=== PATIENT | male | born 1960 | race Hispanic/Latino ===

== ENCOUNTER 2020-06-22 14:59 | Inpatient (IN) | payer MEDICAID ==
[2020-06-22] MEDS ORDERED: AZITHROMYCIN 500MG+NS 250ML 250 ML IV ONE ×2 (15:26→20:47)
[2020-06-22] MEDS ORDERED: DEXAMETHASONE SOD PHOSPHATE 10MG/ML 1ML VIAL ONE (15:26)
[2020-06-22 15:29] LABS: BASOPHILS % (AUTO) 0.1 % (0.0-5.0); HEMATOCRIT 47.1 % (42-54); LYMPHOCYTES % (AUTO) 12.2 % (21.0-51.0); MEAN CORPUSCULAR HEMOGLOBIN 28.7 pg (27.0-33.0); MEAN CORPUSCULAR VOLUME 84.4 fL (79-99); MONOCYTES % (AUTO) 6.7 % (3.0-13.0); NEUTROPHILS % (AUTO) 80.2 % (40.0-77.0); PLATELET COUNT (AUTO) 178 K/uL (130-400); RED BLOOD CELL COUNT(AUTO) 5.58 MIL/uL (4.50-6.20); RED CELL DISTRIBUTION WIDTH 13.2 % (11.0-15.5); WHITE BLOOD COUNT (AUTO) 7.6 K/uL (4.8-10.8)
[2020-06-22] MEDS ORDERED: SODIUM CHLORIDE 0.9% 1000ML 1,000 ML IV ONE (15:47)
[2020-06-22] MEDS ORDERED: ACETAMINOPHEN EXTRA STRENGTH 500 MG TABLET ONE (15:47)
[2020-06-22 15:49] LABS: ABG BASE EXCESS -1.2 mmol/L (-2.0-3.0); ABG HCO3 20.2 mmol/L (21.0-28.0); ABG OXYGEN SATURATION 86.2 % (95.0-99.0); ABG PCO2 26 mmHg (35-48)
[2020-06-22 16:00] LABS: B-TYPE NATRIURETIC PEPTIDE < 5 pg/mL (0-100)
[2020-06-22 16:07] LABS: ALBUMIN 2.6 g/dL (3.5-5.0); BILIRUBIN,TOTAL 0.7 mg/dL (0.2-1.0); POTASSIUM 4.4 mmol/L (3.5-5.1); TOTAL PROTEIN, SERUM 7.1 g/dL (6.0-8.3)
[2020-06-22 16:20] LABS: CREATININE 0.7 mg/dL (0.5-1.5)
[2020-06-22] MEDS ORDERED: DOXYCYCLINE 100MG+NS 250ML IV SCH (20:00)
[2020-06-22] MEDS: CEFTRIAXONE SODIUM 1 GM IVP SCH (20:00)
[2020-06-22] MEDS: DEXAMETHASONE SOD PHOSPHATE 4 MG/ML 1ML VIAL IVP SCH (20:00)
[2020-06-22] MEDS ORDERED: ERGOCALCIFEROL (VITAMIN D2) 50,000 UNIT CAPSULE PO ONE (20:00)
[2020-06-22] MEDS: AZITHROMYCIN 500MG+NS 250ML 250 ML IV SCH (20:00)
[2020-06-22] MEDS ORDERED: IOHEXOL 350 MG/ML 100ML INFUS..BTL IV ONE (20:23)
[2020-06-22] MEDS ORDERED: ERGOCALCIFEROL (VITAMIN D2) 50,000 UNIT CAPSULE ONE (20:46)
[2020-06-22] MEDS ORDERED: ENOXAPARIN SODIUM 40 MG/0.4 ML SYRINGE SQ ONE (20:47)
[2020-06-22] MEDS ORDERED: DEXAMETHASONE SOD PHOSPHATE 4 MG/ML 1ML VIAL ONE (20:47)
[2020-06-22] MEDS ORDERED: CEFTRIAXONE SODIUM 1 GM ONE (20:48)
[2020-06-22] MEDS ORDERED: DOXYCYCLINE 100MG+NS 250ML 250 ML IV ONE (20:48)
[2020-06-22] MEDS: INSULIN HUMULIN R 100 UNIT/ML 3ML SQ SCH (21:00)
[2020-06-22] MEDS: DOXYCYCLINE 100MG+NS 250ML 250 ML IV SCH (21:00)
[2020-06-22] MEDS: ENOXAPARIN SODIUM 40 MG/0.4 ML SYRINGE SQ SCH (21:00)
[2020-06-22] MEDS ORDERED: INSULIN HUMULIN R 100 UNIT/ML 3ML ONE (22:32)
[2020-06-22] MEDS ORDERED: PHARMACY COMMUNICATION**REMDESIVIR ORDER MISC SCH (23:15)
[2020-06-22 23:42] VITALS: BP 126/69
[2020-06-23 04:00] VITALS: BP 125/68
[2020-06-23] MEDS ORDERED: METF-446 PO (04:13)
[2020-06-23 06:23] LABS: BASOPHILS % (AUTO) 0.5 % (0.0-5.0); HEMATOCRIT 40.6 % (42-54); MEAN CORPUSCULAR HEMOGLOBIN 28.6 pg (27.0-33.0); MEAN CORPUSCULAR VOLUME 86.6 fL (79-99); MONOCYTES % (AUTO) 5.5 % (3.0-13.0); NEUTROPHILS % (AUTO) 78.6 % (40.0-77.0); PLATELET COUNT (AUTO) 195 K/uL (130-400); RED BLOOD CELL COUNT(AUTO) 4.69 MIL/uL (4.50-6.20); RED CELL DISTRIBUTION WIDTH 13.1 % (11.0-15.5); WHITE BLOOD COUNT (AUTO) 4.2 K/uL (4.8-10.8)
[2020-06-23 06:37] LABS: ALBUMIN 2.3 g/dL (3.5-5.0); BILIRUBIN,TOTAL 0.4 mg/dL (0.2-1.0); CREATININE 0.7 mg/dL (0.5-1.5); CRP QUANTITATIVE 144.4 mg/L (0.00-9.0); TOTAL PROTEIN, SERUM 6.6 g/dL (6.0-8.3)
[2020-06-23] MEDS: INSULIN HUMULIN R 100 UNIT/ML 3ML SQ SCH ×4 (06:54→22:33)
[2020-06-23] MEDS ORDERED: COMPOUND IV REFRIGERATED 1 EACH IVSOLN MISC PRN (07:45)
[2020-06-23] MEDS ORDERED: REMDESIVIR (EUA) 520 200 MG in SODIUM CHLORIDE 0.9% 250 ML IV ONE (07:45)
[2020-06-23 08:00] VITALS: BP 140/73
[2020-06-23] MEDS: CEFTRIAXONE SODIUM 1 GM IVP SCH ×2 (08:01→20:15)
[2020-06-23] MEDS: ASCORBIC ACID 500 MG TAB PO SCH (08:04)
[2020-06-23] MEDS: DOXYCYCLINE 100MG+NS 250ML 250 ML IV SCH ×2 (08:04→22:34)
[2020-06-23] MEDS: ZINC SULFATE 220 CAPSULE PO SCH (08:04)
[2020-06-23] MEDS: ENOXAPARIN SODIUM 40 MG/0.4 ML SYRINGE SQ SCH ×2 (08:04→22:32)
[2020-06-23 11:00] VITALS: BP 130/59
[2020-06-23 16:00] VITALS: BP 125/65
[2020-06-23 19:00] VITALS: BP 121/66
[2020-06-23] MEDS: AZITHROMYCIN 500MG+NS 250ML 250 ML IV SCH (20:15)
[2020-06-23] MEDS: HYDROXYZINE HCL 25 MG TABLET PO PRN (20:15)
[2020-06-23] MEDS: DEXAMETHASONE SOD PHOSPHATE 4 MG/ML 1ML VIAL IVP SCH (20:15)
[2020-06-24] VITALS: BP 127/63
[2020-06-24 04:00] VITALS: BP 106/62
[2020-06-24 05:58] LABS: BASOPHILS % (AUTO) 0.1 % (0.0-5.0); HEMATOCRIT 43.2 % (42-54); MEAN CORPUSCULAR HEMOGLOBIN 28.3 pg (27.0-33.0); MEAN CORPUSCULAR HGB CONC 32.9 g/dL (32.0-36.0); MEAN CORPUSCULAR VOLUME 86.1 fL (79-99); MONOCYTES % (AUTO) 5.3 % (3.0-13.0); NEUTROPHILS % (AUTO) 86.7 % (40.0-77.0); PLATELET COUNT (AUTO) 236 K/uL (130-400); RED BLOOD CELL COUNT(AUTO) 5.02 MIL/uL (4.50-6.20); RED CELL DISTRIBUTION WIDTH 13.2 % (11.0-15.5)
[2020-06-24] MEDS: REMDESIVIR LABS MISC SCH (06:00)
[2020-06-24 06:21] LABS: ALBUMIN 2.3 g/dL (3.5-5.0); BILIRUBIN,TOTAL 0.4 mg/dL (0.2-1.0); CREATININE 0.6 mg/dL (0.5-1.5); CRP QUANTITATIVE 50.7 mg/L (0.00-9.0); POTASSIUM 5.4 mmol/L (3.5-5.1); TOTAL PROTEIN, SERUM 6.4 g/dL (6.0-8.3)
[2020-06-24] MEDS: INSULIN HUMULIN R 100 UNIT/ML 3ML SQ SCH ×4 (06:57→20:33)
[2020-06-24] MEDS: ZINC SULFATE 220 CAPSULE PO SCH (08:13)
[2020-06-24] MEDS: ENOXAPARIN SODIUM 40 MG/0.4 ML SYRINGE SQ SCH ×2 (08:13→20:32)
[2020-06-24] MEDS: CEFTRIAXONE SODIUM 1 GM IVP SCH ×2 (08:13→20:31)
[2020-06-24] MEDS: ASCORBIC ACID 500 MG TAB PO SCH (08:13)
[2020-06-24] MEDS: DOXYCYCLINE 100MG+NS 250ML 250 ML IV SCH (08:14)
[2020-06-24] MEDS ORDERED: PANTOPRAZOLE SODIUM 40 MG TABLET.DR PO SCH (09:00)
[2020-06-24] MEDS: SODIUM POLYSTYRENE SULFONATE 15 GM/60 ML ML PO SCH (09:37)
[2020-06-24] MEDS: FUROSEMIDE 10 MG/ML 2ML VIAL IV SCH (09:37)
[2020-06-24] MEDS ORDERED: LACTATED RINGERS 1000ML 1,000 ML IV ONE (10:06)
[2020-06-24 10:11] VITALS: BP 118/63
[2020-06-24 12:28] VITALS: BP 125/90
[2020-06-24] MEDS: REMDESIVIR (EUA) 520 100 MG in SODIUM CHLORIDE 0.9% 250 ML IV SCH (13:25)
[2020-06-24 17:18] VITALS: BP 125/60
[2020-06-24 19:00] VITALS: BP 121/60
[2020-06-24] MEDS: AZITHROMYCIN 500MG+NS 250ML 250 ML IV SCH (20:32)
[2020-06-24] MEDS: DEXAMETHASONE SOD PHOSPHATE 4 MG/ML 1ML VIAL IVP SCH (20:32)
[2020-06-24] MEDS: HYDROXYZINE HCL 25 MG TABLET PO PRN (20:43)
[2020-06-25] VITALS (12 sets, daily range): BP systolic 116–148; BP diastolic 55–87
[2020-06-25] MEDS: REMDESIVIR LABS MISC SCH (06:00)
[2020-06-25] MEDS: INSULIN HUMULIN R 100 UNIT/ML 3ML SQ SCH ×4 (06:17→21:48)
[2020-06-25 06:20] LABS: BASOPHILS % (AUTO) 0.1 % (0.0-5.0); HEMATOCRIT 41.9 % (42-54); LYMPHOCYTES % (AUTO) 6.8 % (21.0-51.0); MEAN CORPUSCULAR HEMOGLOBIN 29.3 pg (27.0-33.0); MEAN CORPUSCULAR HGB CONC 33.9 g/dL (32.0-36.0); MEAN CORPUSCULAR VOLUME 86.4 fL (79-99); MONOCYTES % (AUTO) 2.6 % (3.0-13.0); NEUTROPHILS % (AUTO) 89.5 % (40.0-77.0); PLATELET COUNT (AUTO) 240 K/uL (130-400); RED BLOOD CELL COUNT(AUTO) 4.85 MIL/uL (4.50-6.20); WHITE BLOOD COUNT (AUTO) 14.4 K/uL (4.8-10.8)
[2020-06-25 06:51] LABS: ALBUMIN 2.3 g/dL (3.5-5.0); BILIRUBIN,TOTAL 0.5 mg/dL (0.2-1.0); CREATININE 0.9 mg/dL (0.5-1.5); CRP QUANTITATIVE 128.2 mg/L (0.00-9.0); POTASSIUM 3.8 mmol/L (3.5-5.1); TOTAL PROTEIN, SERUM 6.4 g/dL (6.0-8.3)
[2020-06-25] MEDS: FUROSEMIDE 10 MG/ML 2ML VIAL IV SCH (08:07)
[2020-06-25] MEDS: SODIUM POLYSTYRENE SULFONATE 15 GM/60 ML ML PO SCH (08:07)
[2020-06-25] MEDS: ASCORBIC ACID 500 MG TAB PO SCH (08:08)
[2020-06-25] MEDS: ZINC SULFATE 220 CAPSULE PO SCH (08:08)
[2020-06-25] MEDS: CEFTRIAXONE SODIUM 1 GM IVP SCH ×2 (08:08→20:20)
[2020-06-25] MEDS: DOXYCYCLINE 100MG+NS 250ML 250 ML IV SCH ×3 (08:08→21:45)
[2020-06-25] MEDS: ENOXAPARIN SODIUM 40 MG/0.4 ML SYRINGE SQ SCH ×2 (08:09→20:26)
[2020-06-25] MEDS: DEXAMETHASONE SOD PHOSPHATE 4 MG/ML 1ML VIAL IVP SCH ×2 (14:28→21:45)
[2020-06-25] MEDS: REMDESIVIR (EUA) 520 100 MG in SODIUM CHLORIDE 0.9% 250 ML IV SCH (14:31)
[2020-06-25] MEDS: GUAIFENESIN-CODEINE 5 ML SYRUP PO PRN (14:44)
[2020-06-25] MEDS: AZITHROMYCIN 500MG+NS 250ML 250 ML IV SCH (20:20)
[2020-06-26] VITALS (22 sets, daily range): BP systolic 96–140; BP diastolic 34–78
[2020-06-26] MEDS: GUAIFENESIN-CODEINE 5 ML SYRUP PO PRN (00:38)
[2020-06-26] MEDS: INSULIN HUMULIN R 100 UNIT/ML 3ML SQ SCH ×4 (06:41→22:54)
[2020-06-26] MEDS: REMDESIVIR LABS MISC SCH (07:50)
[2020-06-26 08:04] LABS: ALBUMIN 2.1 g/dL (3.5-5.0); BILIRUBIN,DIRECT 0.1 mg/dL (0.0-0.3); BILIRUBIN,TOTAL 0.4 mg/dL (0.2-1.0); CREATININE 0.8 mg/dL (0.5-1.5); POTASSIUM 4.7 mmol/L (3.5-5.1); TOTAL PROTEIN, SERUM 5.9 g/dL (6.0-8.3)
[2020-06-26] MEDS: ZINC SULFATE 220 CAPSULE PO SCH (08:59)
[2020-06-26] MEDS: ASCORBIC ACID 500 MG TAB PO SCH (08:59)
[2020-06-26] MEDS: CEFTRIAXONE SODIUM 1 GM IVP SCH ×2 (08:59→20:00)
[2020-06-26] MEDS: DEXAMETHASONE SOD PHOSPHATE 4 MG/ML 1ML VIAL IVP SCH ×3 (09:00→22:40)
[2020-06-26] MEDS: ENOXAPARIN SODIUM 40 MG/0.4 ML SYRINGE SQ SCH ×2 (09:01→22:43)
[2020-06-26] MEDS: DOXYCYCLINE 100MG+NS 250ML 250 ML IV SCH ×2 (09:01→22:42)
[2020-06-26 10:21] LABS: BASOPHILS % (AUTO) 0.4 % (0.0-5.0); EOSINOPHILS % (AUTO) 0.3 % (0.0-8.0); HEMATOCRIT 41.8 % (42-54); MEAN CORPUSCULAR HEMOGLOBIN 28.7 pg (27.0-33.0); MEAN CORPUSCULAR HGB CONC 32.8 g/dL (32.0-36.0); MEAN CORPUSCULAR VOLUME 87.4 fL (79-99); MONOCYTES % (AUTO) 3.2 % (3.0-13.0); NEUTROPHILS % (AUTO) 85.2 % (40.0-77.0); PLATELET COUNT (AUTO) 248 K/uL (130-400); RED BLOOD CELL COUNT(AUTO) 4.78 MIL/uL (4.50-6.20); RED CELL DISTRIBUTION WIDTH 13.2 % (11.0-15.5); WHITE BLOOD COUNT (AUTO) 7.6 K/uL (4.8-10.8)
[2020-06-26] MEDS: REMDESIVIR (EUA) 520 100 MG in SODIUM CHLORIDE 0.9% 250 ML IV SCH (13:46)
[2020-06-26] MEDS: AZITHROMYCIN 500MG+NS 250ML 250 ML IV SCH (22:41)
[2020-06-27] VITALS (21 sets, daily range): BP systolic 115–155; BP diastolic 44–95
[2020-06-27 05:00] LABS: ABG BASE EXCESS 1.6 mmol/L (-2.0-3.0); ABG HCO3 25.1 mmol/L (21.0-28.0); ABG OXYGEN SATURATION 89.6 % (95.0-99.0); ABG PCO2 36 mmHg (35-48)
[2020-06-27] MEDS: INSULIN HUMULIN R 100 UNIT/ML 3ML SQ SCH ×4 (05:25→22:09)
[2020-06-27] MEDS: REMDESIVIR LABS MISC SCH (06:00)
[2020-06-27 06:11] LABS: BASOPHILS % (AUTO) 0.2 % (0.0-5.0); HEMATOCRIT 41.9 % (42-54); LYMPHOCYTES % (AUTO) 7.9 % (21.0-51.0); MEAN CORPUSCULAR HEMOGLOBIN 28.6 pg (27.0-33.0); MEAN CORPUSCULAR HGB CONC 33.4 g/dL (32.0-36.0); MEAN CORPUSCULAR VOLUME 85.7 fL (79-99); MONOCYTES % (AUTO) 4.8 % (3.0-13.0); NEUTROPHILS % (AUTO) 86.3 % (40.0-77.0); PLATELET COUNT (AUTO) 273 K/uL (130-400); RED BLOOD CELL COUNT(AUTO) 4.89 MIL/uL (4.50-6.20); RED CELL DISTRIBUTION WIDTH 12.8 % (11.0-15.5); WHITE BLOOD COUNT (AUTO) 8.7 K/uL (4.8-10.8)
[2020-06-27 06:34] LABS: ALBUMIN 2.1 g/dL (3.5-5.0); BILIRUBIN,TOTAL 0.5 mg/dL (0.2-1.0); CREATININE 0.6 mg/dL (0.5-1.5); CRP QUANTITATIVE 32.9 mg/L (0.00-9.0); POTASSIUM 3.8 mmol/L (3.5-5.1); TOTAL PROTEIN, SERUM 6.2 g/dL (6.0-8.3)
[2020-06-27] MEDS: DEXAMETHASONE SOD PHOSPHATE 4 MG/ML 1ML VIAL IVP SCH (08:47)
[2020-06-27] MEDS: ENOXAPARIN SODIUM 40 MG/0.4 ML SYRINGE SQ SCH ×2 (08:47→22:06)
[2020-06-27] MEDS: CEFTRIAXONE SODIUM 1 GM IVP SCH ×2 (08:47→22:07)
[2020-06-27] MEDS: ZINC SULFATE 220 CAPSULE PO SCH (08:47)
[2020-06-27] MEDS: ASCORBIC ACID 500 MG TAB PO SCH (08:47)
[2020-06-27] MEDS: DOXYCYCLINE 100MG+NS 250ML 250 ML IV SCH (08:48)
[2020-06-27] MEDS: PHARMACY COMMUNICATION MISC SCH ×5 (10:15→18:15)
[2020-06-27] MEDS: REMDESIVIR (EUA) 520 100 MG in SODIUM CHLORIDE 0.9% 250 ML IV SCH (17:42)
[2020-06-27] MEDS ORDERED: DEXAMETHASONE SOD PHOSPHATE 4 MG/ML 1ML VIAL IVP SCH (21:00)
[2020-06-27] MEDS: AZITHROMYCIN 500MG+NS 250ML 250 ML IV SCH (22:06)
[2020-06-28] VITALS (11 sets, daily range): BP systolic 92–159; BP diastolic 32–102
[2020-06-28] MEDS: GUAIFENESIN-CODEINE 5 ML SYRUP PO PRN ×2 (02:55→13:04)
[2020-06-28 05:24] LABS: BASOPHILS % (AUTO) 0.1 % (0.0-5.0); HEMATOCRIT 42.8 % (42-54); LYMPHOCYTES % (AUTO) 4.4 % (21.0-51.0); MEAN CORPUSCULAR HEMOGLOBIN 28.7 pg (27.0-33.0); MEAN CORPUSCULAR HGB CONC 33.9 g/dL (32.0-36.0); MEAN CORPUSCULAR VOLUME 84.8 fL (79-99); MONOCYTES % (AUTO) 7.2 % (3.0-13.0); NEUTROPHILS % (AUTO) 87.3 % (40.0-77.0); PLATELET COUNT (AUTO) 361 K/uL (130-400); RED BLOOD CELL COUNT(AUTO) 5.05 MIL/uL (4.50-6.20); RED CELL DISTRIBUTION WIDTH 12.7 % (11.0-15.5); WHITE BLOOD COUNT (AUTO) 10.5 K/uL (4.8-10.8)
[2020-06-28 05:33] LABS: CREATININE 0.7 mg/dL (0.5-1.5); CRP QUANTITATIVE 16.9 mg/L (0.00-9.0); POTASSIUM 4.6 mmol/L (3.5-5.1)
[2020-06-28] MEDS: INSULIN HUMULIN R 100 UNIT/ML 3ML SQ SCH ×4 (06:05→22:07)
[2020-06-28] MEDS: ASCORBIC ACID 500 MG TAB PO SCH (09:41)
[2020-06-28] MEDS: ZINC SULFATE 220 CAPSULE PO SCH (09:41)
[2020-06-28] MEDS: ENOXAPARIN SODIUM 40 MG/0.4 ML SYRINGE SQ SCH ×2 (09:41→22:06)
[2020-06-28] MEDS: DEXAMETHASONE SOD PHOSPHATE 4 MG/ML 1ML VIAL IVP SCH (13:18)
[2020-06-28] MEDS: AZITHROMYCIN 500MG+NS 250ML 250 ML IV SCH (22:06)
[2020-06-29 04:00] VITALS: BP 111/57
[2020-06-29] MEDS: GUAIFENESIN-CODEINE 5 ML SYRUP PO PRN ×2 (05:33→05:38)
[2020-06-29 06:10] LABS: BASOPHILS % (AUTO) 0.1 % (0.0-5.0); EOSINOPHILS % (AUTO) 0.4 % (0.0-8.0); HEMATOCRIT 44.8 % (42-54); LYMPHOCYTES % (AUTO) 13.7 % (21.0-51.0); MEAN CORPUSCULAR HGB CONC 33.9 g/dL (32.0-36.0); MEAN CORPUSCULAR VOLUME 85.3 fL (79-99); MONOCYTES % (AUTO) 8.5 % (3.0-13.0); NEUTROPHILS % (AUTO) 76.5 % (40.0-77.0); PLATELET COUNT (AUTO) 317 K/uL (130-400); RED BLOOD CELL COUNT(AUTO) 5.25 MIL/uL (4.50-6.20); RED CELL DISTRIBUTION WIDTH 12.8 % (11.0-15.5); WHITE BLOOD COUNT (AUTO) 10.5 K/uL (4.8-10.8)
[2020-06-29 06:54] LABS: CRP QUANTITATIVE 19.4 mg/L (0.00-9.0); POTASSIUM 4.1 mmol/L (3.5-5.1)
[2020-06-29 06:55] LABS: CREATININE 0.5 mg/dL (0.5-1.5)
[2020-06-29] MEDS: INSULIN HUMULIN R 100 UNIT/ML 3ML SQ SCH ×4 (07:30→21:21)
[2020-06-29] MEDS: ENOXAPARIN SODIUM 40 MG/0.4 ML SYRINGE SQ SCH ×2 (07:43→21:24)
[2020-06-29] MEDS: ZINC SULFATE 220 CAPSULE PO SCH (07:44)
[2020-06-29] MEDS: ASCORBIC ACID 500 MG TAB PO SCH (07:44)
[2020-06-29] MEDS: DEXAMETHASONE SOD PHOSPHATE 4 MG/ML 1ML VIAL IVP SCH (07:44)
[2020-06-29] MEDS: HYDROXYZINE HCL 25 MG TABLET PO PRN (07:58)
[2020-06-29 08:08] VITALS: BP 132/62
[2020-06-29 09:03] VITALS: BP 107/59
[2020-06-29 11:47] VITALS: BP 85/53
[2020-06-29 15:52] VITALS: BP 93/50
[2020-06-29] MEDS ORDERED: CLONAZEPAM 0.5 MG TABLET PO SCH (21:00)
[2020-06-29] MEDS: AZITHROMYCIN 500MG+NS 250ML 250 ML IV SCH (21:17)
[2020-06-30] MEDS: INSULIN HUMULIN R 100 UNIT/ML 3ML SQ SCH ×4 (06:28→20:48)
[2020-06-30 06:38] LABS: BASOPHILS % (AUTO) 0.1 % (0.0-5.0); EOSINOPHILS % (AUTO) 0.4 % (0.0-8.0); HEMATOCRIT 41.5 % (42-54); LYMPHOCYTES % (AUTO) 11.5 % (21.0-51.0); MEAN CORPUSCULAR HEMOGLOBIN 28.3 pg (27.0-33.0); MEAN CORPUSCULAR VOLUME 85.7 fL (79-99); MONOCYTES % (AUTO) 8.3 % (3.0-13.0); NEUTROPHILS % (AUTO) 78.6 % (40.0-77.0); PLATELET COUNT (AUTO) 322 K/uL (130-400); RED BLOOD CELL COUNT(AUTO) 4.84 MIL/uL (4.50-6.20); RED CELL DISTRIBUTION WIDTH 12.8 % (11.0-15.5)
[2020-06-30 07:15] LABS: ALBUMIN 2.3 g/dL (3.5-5.0); BILIRUBIN,TOTAL 0.5 mg/dL (0.2-1.0); CREATININE 0.7 mg/dL (0.5-1.5); CRP QUANTITATIVE 55.8 mg/L (0.00-9.0); POTASSIUM 4.1 mmol/L (3.5-5.1)
[2020-06-30 07:30] VITALS: BP 110/62
[2020-06-30 08:00] VITALS: BP 107/63
[2020-06-30] MEDS: PHARMACY COMMUNICATION MISC SCH (08:15)
[2020-06-30] MEDS: ZINC SULFATE 220 CAPSULE PO SCH (08:22)
[2020-06-30] MEDS: ASCORBIC ACID 500 MG TAB PO SCH (08:22)
[2020-06-30] MEDS: ENOXAPARIN SODIUM 40 MG/0.4 ML SYRINGE SQ SCH ×2 (08:22→20:26)
[2020-06-30] MEDS: GUAIFENESIN-CODEINE 5 ML SYRUP PO PRN ×2 (11:34→18:52)
[2020-06-30 11:49] VITALS: BP 98/63
[2020-06-30 16:00] VITALS: BP 126/80
[2020-06-30] MEDS: AZITHROMYCIN 500MG+NS 250ML 250 ML IV SCH (19:43)
[2020-06-30 20:00] VITALS: BP 104/63
[2020-06-30] MEDS: TRAZODONE HCL 50 MG TAB PO PRN (23:27)
[2020-07-01] MEDS: GUAIFENESIN-CODEINE 5 ML SYRUP PO PRN ×3 (02:04→20:27)
[2020-07-01] MEDS: INSULIN HUMULIN R 100 UNIT/ML 3ML SQ SCH ×4 (06:03→20:34)
[2020-07-01 06:06] LABS: BASOPHILS % (AUTO) 0.2 % (0.0-5.0); EOSINOPHILS % (AUTO) 2.7 % (0.0-8.0); LYMPHOCYTES % (AUTO) 16.6 % (21.0-51.0); MEAN CORPUSCULAR HEMOGLOBIN 29.1 pg (27.0-33.0); MEAN CORPUSCULAR HGB CONC 33.6 g/dL (32.0-36.0); MEAN CORPUSCULAR VOLUME 86.8 fL (79-99); MONOCYTES % (AUTO) 7.3 % (3.0-13.0); NEUTROPHILS % (AUTO) 72.1 % (40.0-77.0); PLATELET COUNT (AUTO) 285 K/uL (130-400); RED BLOOD CELL COUNT(AUTO) 4.84 MIL/uL (4.50-6.20); WHITE BLOOD COUNT (AUTO) 10.8 K/uL (4.8-10.8)
[2020-07-01 06:27] LABS: ALBUMIN 2.1 g/dL (3.5-5.0); BILIRUBIN,TOTAL 0.6 mg/dL (0.2-1.0); CREATININE 0.6 mg/dL (0.5-1.5); CRP QUANTITATIVE 32.5 mg/L (0.00-9.0); POTASSIUM 5.4 mmol/L (3.5-5.1); TOTAL PROTEIN, SERUM 6.1 g/dL (6.0-8.3)
[2020-07-01 08:00] VITALS: BP 114/53
[2020-07-01] MEDS: ZINC SULFATE 220 CAPSULE PO SCH (09:39)
[2020-07-01] MEDS: ASCORBIC ACID 500 MG TAB PO SCH (09:39)
[2020-07-01] MEDS: ENOXAPARIN SODIUM 40 MG/0.4 ML SYRINGE SQ SCH ×2 (09:43→19:46)
[2020-07-01 12:00] VITALS: BP 105/62
[2020-07-01] MEDS: DEXAMETHASONE SOD PHOSPHATE 4 MG/ML 1ML VIAL IVP SCH (12:17)
[2020-07-01 12:34] LABS: CREATININE 0.6 mg/dL (0.5-1.5); POTASSIUM 4.7 mmol/L (3.5-5.1)
[2020-07-01 16:00] VITALS: BP 103/70
[2020-07-01] MEDS: TRAZODONE HCL 50 MG TAB PO PRN (20:27)
[2020-07-02] MEDS: GUAIFENESIN-CODEINE 5 ML SYRUP PO PRN ×2 (05:39→20:35)
[2020-07-02] MEDS: INSULIN HUMULIN R 100 UNIT/ML 3ML SQ SCH ×4 (05:39→20:37)
[2020-07-02] MEDS: ENOXAPARIN SODIUM 40 MG/0.4 ML SYRINGE SQ SCH ×2 (07:56→09:18)
[2020-07-02 08:30] VITALS: BP 108/60
[2020-07-02] MEDS: DEXAMETHASONE SOD PHOSPHATE 4 MG/ML 1ML VIAL IVP SCH (09:17)
[2020-07-02] MEDS: ZINC SULFATE 220 CAPSULE PO SCH (09:18)
[2020-07-02] MEDS: ASCORBIC ACID 500 MG TAB PO SCH (09:18)
[2020-07-02 12:42] VITALS: BP 106/50
[2020-07-02 16:30] VITALS: BP 115/72
[2020-07-02] MEDS: TRAZODONE HCL 50 MG TAB PO PRN (20:35)
[2020-07-03 05:41] LABS: BASOPHILS % (AUTO) 0.1 % (0.0-5.0); HEMATOCRIT 40.9 % (42-54); LYMPHOCYTES % (AUTO) 9.7 % (21.0-51.0); MEAN CORPUSCULAR HEMOGLOBIN 28.8 pg (27.0-33.0); MEAN CORPUSCULAR HGB CONC 33.5 g/dL (32.0-36.0); MEAN CORPUSCULAR VOLUME 86.1 fL (79-99); MONOCYTES % (AUTO) 7.1 % (3.0-13.0); NEUTROPHILS % (AUTO) 82.4 % (40.0-77.0); PLATELET COUNT (AUTO) 354 K/uL (130-400); RED BLOOD CELL COUNT(AUTO) 4.75 MIL/uL (4.50-6.20); RED CELL DISTRIBUTION WIDTH 12.7 % (11.0-15.5)
[2020-07-03 06:00] LABS: ALBUMIN 2.4 g/dL (3.5-5.0); BILIRUBIN,TOTAL 0.3 mg/dL (0.2-1.0); CREATININE 0.7 mg/dL (0.5-1.5); CRP QUANTITATIVE 16.2 mg/L (0.00-9.0); POTASSIUM 4.4 mmol/L (3.5-5.1); TOTAL PROTEIN, SERUM 6.6 g/dL (6.0-8.3)
[2020-07-03] MEDS: INSULIN HUMULIN R 100 UNIT/ML 3ML SQ SCH ×4 (07:30→20:29)
[2020-07-03 07:47] LABS: HEMOGLOBIN A1C 7.8 % (4.0-6.0)
[2020-07-03] MEDS: ZINC SULFATE 220 CAPSULE PO SCH (07:51)
[2020-07-03] MEDS: ASCORBIC ACID 500 MG TAB PO SCH (07:51)
[2020-07-03] MEDS: DEXAMETHASONE SOD PHOSPHATE 4 MG/ML 1ML VIAL IVP SCH (07:51)
[2020-07-03] MEDS: ENOXAPARIN SODIUM 40 MG/0.4 ML SYRINGE SQ SCH ×2 (08:00→20:34)
[2020-07-03 08:51] VITALS: BP 117/68
[2020-07-03 12:02] VITALS: BP 107/62
[2020-07-03 16:30] VITALS: BP 117/68
[2020-07-03 20:00] VITALS: BP 117/87
[2020-07-03] MEDS: TRAZODONE HCL 50 MG TAB PO PRN (20:34)
[2020-07-04 04:00] VITALS: BP 99/71
[2020-07-04] MEDS: INSULIN HUMULIN R 100 UNIT/ML 3ML SQ SCH ×6 (05:30→20:23)
[2020-07-04 06:27] LABS: BASOPHILS % (AUTO) 0.1 % (0.0-5.0); EOSINOPHILS % (AUTO) 0.1 % (0.0-8.0); HEMATOCRIT 41.8 % (42-54); LYMPHOCYTES % (AUTO) 11.7 % (21.0-51.0); MEAN CORPUSCULAR HEMOGLOBIN 28.8 pg (27.0-33.0); MEAN CORPUSCULAR HGB CONC 33.5 g/dL (32.0-36.0); MONOCYTES % (AUTO) 8.9 % (3.0-13.0); NEUTROPHILS % (AUTO) 78.3 % (40.0-77.0); PLATELET COUNT (AUTO) 316 K/uL (130-400); RED BLOOD CELL COUNT(AUTO) 4.86 MIL/uL (4.50-6.20); RED CELL DISTRIBUTION WIDTH 12.8 % (11.0-15.5); WHITE BLOOD COUNT (AUTO) 11.7 K/uL (4.8-10.8)
[2020-07-04 06:31] LABS: CREATININE 0.7 mg/dL (0.5-1.5); CRP QUANTITATIVE 2.6 mg/L (0.00-9.0); POTASSIUM 4.4 mmol/L (3.5-5.1)
[2020-07-04 07:00] VITALS: BP 102/68
[2020-07-04] MEDS: ENOXAPARIN SODIUM 40 MG/0.4 ML SYRINGE SQ SCH ×2 (09:04→20:16)
[2020-07-04] MEDS: ASCORBIC ACID 500 MG TAB PO SCH (09:04)
[2020-07-04] MEDS: ZINC SULFATE 220 CAPSULE PO SCH (09:05)
[2020-07-04] MEDS: DEXAMETHASONE SOD PHOSPHATE 4 MG/ML 1ML VIAL IVP SCH (09:05)
[2020-07-04] MEDS ORDERED: INSULIN GLARGINE 100 UNITS/ML 10 ML VIAL SQ SCH (09:15)
[2020-07-04 12:00] VITALS: BP 105/72
[2020-07-04 15:00] VITALS: BP 98/74
[2020-07-04 20:00] VITALS: BP 125/67
[2020-07-04] MEDS: GUAIFENESIN-CODEINE 5 ML SYRUP PO PRN (20:16)
[2020-07-04] MEDS: TRAZODONE HCL 50 MG TAB PO PRN (20:23)
[2020-07-05] VITALS: BP_SYST 115; BP_SYST 121; BP_DIAS 64; BP_DIAS 68
[2020-07-05 04:00] VITALS: BP 99/41
[2020-07-05] MEDS: INSULIN HUMULIN R 100 UNIT/ML 3ML SQ SCH ×7 (07:30→20:07)
[2020-07-05] MEDS: ENOXAPARIN SODIUM 40 MG/0.4 ML SYRINGE SQ SCH ×2 (09:00→20:08)
[2020-07-05 09:44] VITALS: BP 106/60
[2020-07-05 12:15] VITALS: BP 119/69
[2020-07-05] MEDS: ASCORBIC ACID 500 MG TAB PO SCH (12:32)
[2020-07-05] MEDS: DEXAMETHASONE SOD PHOSPHATE 4 MG/ML 1ML VIAL IVP SCH (12:32)
[2020-07-05] MEDS: ZINC SULFATE 220 CAPSULE PO SCH (12:33)
[2020-07-05] MEDS: INSULIN GLARGINE 100 UNITS/ML 10 ML VIAL SQ SCH (12:45)
[2020-07-05 16:00] VITALS: BP 115/68
[2020-07-05 20:00] VITALS: BP 117/69
[2020-07-05] MEDS ORDERED: GLIP10TA9 PO (20:13)
[2020-07-05] MEDS ORDERED: LISI10TA24 PO (20:13)
[2020-07-05] MEDS ORDERED: ASPI-1197 PO (20:13)
[2020-07-05] MEDS: TRAZODONE HCL 50 MG TAB PO PRN (20:18)
[2020-07-05] MEDS: GUAIFENESIN-CODEINE 5 ML SYRUP PO PRN (20:18)
[2020-07-06] VITALS (7 sets, daily range): BP systolic 104–137; BP diastolic 52–73
[2020-07-06] MEDS: INSULIN HUMULIN R 100 UNIT/ML 3ML SQ SCH ×7 (05:31→20:09)
[2020-07-06 05:50] LABS: BASOPHILS % (AUTO) 0.1 % (0.0-5.0); HEMATOCRIT 41.4 % (42-54); LYMPHOCYTES % (AUTO) 12.4 % (21.0-51.0); MEAN CORPUSCULAR HEMOGLOBIN 28.8 pg (27.0-33.0); MEAN CORPUSCULAR HGB CONC 33.6 g/dL (32.0-36.0); MEAN CORPUSCULAR VOLUME 85.9 fL (79-99); MONOCYTES % (AUTO) 6.4 % (3.0-13.0); NEUTROPHILS % (AUTO) 80.2 % (40.0-77.0); PLATELET COUNT (AUTO) 293 K/uL (130-400); RED BLOOD CELL COUNT(AUTO) 4.82 MIL/uL (4.50-6.20); RED CELL DISTRIBUTION WIDTH 12.9 % (11.0-15.5); WHITE BLOOD COUNT (AUTO) 9.7 K/uL (4.8-10.8)
[2020-07-06 06:00] LABS: CREATININE 0.6 mg/dL (0.5-1.5); CRP QUANTITATIVE 4.5 mg/L (0.00-9.0); POTASSIUM 3.9 mmol/L (3.5-5.1)
[2020-07-06] MEDS: DEXAMETHASONE SOD PHOSPHATE 4 MG/ML 1ML VIAL IVP SCH (08:08)
[2020-07-06] MEDS: ZINC SULFATE 220 CAPSULE PO SCH (08:08)
[2020-07-06] MEDS: ASCORBIC ACID 500 MG TAB PO SCH (08:08)
[2020-07-06] MEDS: INSULIN GLARGINE 100 UNITS/ML 10 ML VIAL SQ SCH (08:11)
[2020-07-06] MEDS: ENOXAPARIN SODIUM 40 MG/0.4 ML SYRINGE SQ SCH ×2 (08:12→20:07)
[2020-07-06] MEDS: GUAIFENESIN-CODEINE 5 ML SYRUP PO PRN (20:22)
[2020-07-06] MEDS: TRAZODONE HCL 50 MG TAB PO PRN (20:22)
[2020-07-07 04:20] VITALS: BP 115/64
[2020-07-07 05:14] LABS: BASOPHILS % (AUTO) 0.1 % (0.0-5.0); EOSINOPHILS % (AUTO) 0.2 % (0.0-8.0); HEMATOCRIT 42.7 % (42-54); MEAN CORPUSCULAR HEMOGLOBIN 28.4 pg (27.0-33.0); MEAN CORPUSCULAR HGB CONC 33.3 g/dL (32.0-36.0); MEAN CORPUSCULAR VOLUME 85.4 fL (79-99); MONOCYTES % (AUTO) 6.3 % (3.0-13.0); NEUTROPHILS % (AUTO) 72.4 % (40.0-77.0); PLATELET COUNT (AUTO) 250 K/uL (130-400); RED CELL DISTRIBUTION WIDTH 13.2 % (11.0-15.5); WHITE BLOOD COUNT (AUTO) 10.7 K/uL (4.8-10.8)
[2020-07-07 05:31] LABS: CREATININE 0.7 mg/dL (0.5-1.5)
[2020-07-07] MEDS: INSULIN HUMULIN R 100 UNIT/ML 3ML SQ SCH ×8 (05:52→20:19)
[2020-07-07 07:41] VITALS: BP 108/59
[2020-07-07] MEDS ORDERED: INSULIN GLARGINE 100 UNITS/ML 10 ML VIAL SQ SCH (08:00)
[2020-07-07] MEDS: ZINC SULFATE 220 CAPSULE PO SCH (08:45)
[2020-07-07] MEDS: DEXAMETHASONE SOD PHOSPHATE 4 MG/ML 1ML VIAL IVP SCH (08:45)
[2020-07-07] MEDS: ASCORBIC ACID 500 MG TAB PO SCH (08:45)
[2020-07-07] MEDS: ENOXAPARIN SODIUM 40 MG/0.4 ML SYRINGE SQ SCH ×2 (08:45→20:00)
[2020-07-07 12:17] VITALS: BP 113/62
[2020-07-07 16:16] VITALS: BP 108/69
[2020-07-07] MEDS: GUAIFENESIN-CODEINE 5 ML SYRUP PO PRN (20:00)
[2020-07-07] MEDS: TRAZODONE HCL 50 MG TAB PO PRN (20:00)
[2020-07-07 20:33] VITALS: BP 107/64
[2020-07-07 23:52] VITALS: BP 105/57
[2020-07-08 04:01] VITALS: BP 119/57
[2020-07-08] MEDS: INSULIN HUMULIN R 100 UNIT/ML 3ML SQ SCH ×7 (05:59→20:19)
[2020-07-08 06:19] LABS: BASOPHILS % (AUTO) 0.1 % (0.0-5.0); EOSINOPHILS % (AUTO) 0.1 % (0.0-8.0); HEMATOCRIT 44.8 % (42-54); LYMPHOCYTES % (AUTO) 16.9 % (21.0-51.0); MEAN CORPUSCULAR HEMOGLOBIN 29.2 pg (27.0-33.0); MEAN CORPUSCULAR HGB CONC 33.3 g/dL (32.0-36.0); MEAN CORPUSCULAR VOLUME 87.8 fL (79-99); MONOCYTES % (AUTO) 5.8 % (3.0-13.0); NEUTROPHILS % (AUTO) 75.9 % (40.0-77.0); PLATELET COUNT (AUTO) 241 K/uL (130-400); RED CELL DISTRIBUTION WIDTH 13.2 % (11.0-15.5); WHITE BLOOD COUNT (AUTO) 11.4 K/uL (4.8-10.8)
[2020-07-08 06:44] LABS: CREATININE 0.7 mg/dL (0.5-1.5); POTASSIUM 4.3 mmol/L (3.5-5.1)
[2020-07-08 08:00] VITALS: BP 113/68
[2020-07-08] MEDS: DEXAMETHASONE SOD PHOSPHATE 4 MG/ML 1ML VIAL IVP SCH (09:12)
[2020-07-08] MEDS: ENOXAPARIN SODIUM 40 MG/0.4 ML SYRINGE SQ SCH ×2 (09:12→20:20)
[2020-07-08] MEDS: ASCORBIC ACID 500 MG TAB PO SCH (09:12)
[2020-07-08] MEDS: ZINC SULFATE 220 CAPSULE PO SCH (09:12)
[2020-07-08] MEDS: INSULIN GLARGINE 100 UNITS/ML 10 ML VIAL SQ SCH (09:17)
[2020-07-08 11:58] VITALS: BP 114/68
[2020-07-08 16:03] VITALS: BP 122/71
[2020-07-08 20:11] VITALS: BP 118/69
[2020-07-08] MEDS: TRAZODONE HCL 50 MG TAB PO PRN (20:20)
[2020-07-08] MEDS: GUAIFENESIN-CODEINE 5 ML SYRUP PO PRN (20:20)
[2020-07-08 23:28] VITALS: BP 125/74
[2020-07-09 04:40] VITALS: BP 108/58
[2020-07-09 05:46] LABS: BASOPHILS % (AUTO) 0.1 % (0.0-5.0); EOSINOPHILS % (AUTO) 0.1 % (0.0-8.0); HEMATOCRIT 41.7 % (42-54); LYMPHOCYTES % (AUTO) 18.3 % (21.0-51.0); MEAN CORPUSCULAR HGB CONC 33.3 g/dL (32.0-36.0); MEAN CORPUSCULAR VOLUME 87.1 fL (79-99); MONOCYTES % (AUTO) 5.5 % (3.0-13.0); NEUTROPHILS % (AUTO) 74.9 % (40.0-77.0); PLATELET COUNT (AUTO) 235 K/uL (130-400); RED BLOOD CELL COUNT(AUTO) 4.79 MIL/uL (4.50-6.20); RED CELL DISTRIBUTION WIDTH 13.4 % (11.0-15.5); WHITE BLOOD COUNT (AUTO) 10.3 K/uL (4.8-10.8)
[2020-07-09 06:04] LABS: CREATININE 0.6 mg/dL (0.5-1.5); POTASSIUM 4.4 mmol/L (3.5-5.1)
[2020-07-09] MEDS: INSULIN HUMULIN R 100 UNIT/ML 3ML SQ SCH ×7 (06:04→21:51)
[2020-07-09] MEDS ORDERED: INSULIN HUMULIN R 100 UNIT/ML 3ML SQ SCH (07:30)
[2020-07-09] MEDS: DEXAMETHASONE SOD PHOSPHATE 4 MG/ML 1ML VIAL IVP SCH (08:21)
[2020-07-09] MEDS: ZINC SULFATE 220 CAPSULE PO SCH (08:21)
[2020-07-09] MEDS: ASCORBIC ACID 500 MG TAB PO SCH (08:21)
[2020-07-09] MEDS: ENOXAPARIN SODIUM 40 MG/0.4 ML SYRINGE SQ SCH ×2 (08:22→21:23)
[2020-07-09] MEDS: INSULIN GLARGINE 100 UNITS/ML 10 ML VIAL SQ SCH (08:31)
[2020-07-09 08:32] VITALS: BP 110/67
[2020-07-09] MEDS ORDERED: FLU VACC QS2020-21(6MOS UP)/PF 60 MCG/0.5 ML ML IM ONE (09:30)
[2020-07-09] MEDS: FLU VACC QS2020-21(6MOS UP)/PF 60 MCG/0.5 ML ML IM SCH (12:08)
[2020-07-09 12:18] VITALS: BP 117/71
[2020-07-09] MEDS ORDERED: ACETAMINOPHEN 325 MG TAB PO PRN ×2 (14:15→15:30)
[2020-07-09 17:04] VITALS: BP 113/68
[2020-07-09 19:15] VITALS: BP 124/76
[2020-07-09] MEDS: TRAZODONE HCL 50 MG TAB PO PRN (22:12)
[2020-07-09] MEDS: GUAIFENESIN-CODEINE 5 ML SYRUP PO PRN (22:12)
[2020-07-09 23:55] VITALS: BP 104/44
[2020-07-10 03:52] VITALS: BP 114/75
[2020-07-10 05:25] LABS: BASOPHILS % (AUTO) 0.1 % (0.0-5.0); EOSINOPHILS % (AUTO) 0.3 % (0.0-8.0); HEMATOCRIT 41.7 % (42-54); LYMPHOCYTES % (AUTO) 19.5 % (21.0-51.0); MEAN CORPUSCULAR HEMOGLOBIN 29.2 pg (27.0-33.0); MEAN CORPUSCULAR HGB CONC 34.1 g/dL (32.0-36.0); MEAN CORPUSCULAR VOLUME 85.6 fL (79-99); MONOCYTES % (AUTO) 5.2 % (3.0-13.0); NEUTROPHILS % (AUTO) 73.6 % (40.0-77.0); PLATELET COUNT (AUTO) 206 K/uL (130-400); RED BLOOD CELL COUNT(AUTO) 4.87 MIL/uL (4.50-6.20); RED CELL DISTRIBUTION WIDTH 13.5 % (11.0-15.5); WHITE BLOOD COUNT (AUTO) 9.6 K/uL (4.8-10.8)
[2020-07-10 05:59] LABS: ALBUMIN 2.7 g/dL (3.5-5.0); BILIRUBIN,TOTAL 0.4 mg/dL (0.2-1.0); CREATININE 0.7 mg/dL (0.5-1.5); CRP QUANTITATIVE 2.5 mg/L (0.00-9.0); POTASSIUM 3.9 mmol/L (3.5-5.1); TOTAL PROTEIN, SERUM 6.1 g/dL (6.0-8.3)
[2020-07-10] MEDS: INSULIN HUMULIN R 100 UNIT/ML 3ML SQ SCH ×6 (06:15→17:38)
[2020-07-10] MEDS: INSULIN GLARGINE 100 UNITS/ML 10 ML VIAL SQ SCH ×2 (08:00→18:47)
[2020-07-10 08:20] VITALS: BP 124/81
[2020-07-10] MEDS: FLU VACC QS2020-21(6MOS UP)/PF 60 MCG/0.5 ML ML IM SCH (09:30)
[2020-07-10] MEDS: ZINC SULFATE 220 CAPSULE PO SCH (09:50)
[2020-07-10] MEDS: ASCORBIC ACID 500 MG TAB PO SCH (09:50)
[2020-07-10] MEDS: ENOXAPARIN SODIUM 40 MG/0.4 ML SYRINGE SQ SCH (09:53)
[2020-07-10] MEDS: DEXAMETHASONE SOD PHOSPHATE 4 MG/ML 1ML VIAL IVP SCH (09:53)
[2020-07-10 11:43] VITALS: BP 123/65
[2020-07-10] MEDS ORDERED: PANT40TA55 PO (13:46)
[2020-07-10 16:49] VITALS: BP 117/67
== END 2020-07-10 19:50 | disposition home or self-care (01) | DRG 137 ==
LOC: EDH 14:59 → EDHIP 15:00 → 4AH 21:53 → 2CV 06-25 12:52 → 2AH 06-25 16:50 → 2DH 07-05 09:51
PROVIDERS: ADMIT Family Medicine; ATTEND Family Medicine
DX: U07.1 COVID-19 (principal); J12.82 Pneumonia due to coronavirus disease 2019; J80 Acute respiratory distress syndrome; E87.2 Acidosis
CPT/HCPCS: 36415; 36430; 36600; 71045; 71275; 80048; 80053; 80076; 82728; 82803; 82948; 83036; 83605; 83615; 83880; 84145; 84484; 85025; 85378; 85384; 86140; 86900; 86901; 86927; 87040; 87426; 93005; 94760; 97039; G0378; J0456; J0696; J1100; J1650; J1815; J1940; J3490; J7030; J7050; J7120; Q2035; Q9967

== ENCOUNTER 2020-12-26 04:06 | Emergency (ER) | payer MEDICAID ==
[~2020-12-26] VITALS: Ht 162.6 cm; Wt 73.0 kg
[~2020-12-26 04:06] MED LIST: ASPI-1197 PO; GLIP10TA9 PO; LISI10TA24 PO; METF-446 PO; PANT40TA55 PO
[2020-12-26 04:10] VITALS: BP 127/78
[2020-12-26] MEDS ORDERED: XYLOCAINE VISCOUS MM (04:57)
[2020-12-26] MEDS ORDERED: MELO7.5T12 PO (04:57)
[2020-12-26] MEDS ORDERED: CLIN300C10 PO (04:57)
[2020-12-26] MEDS ORDERED: CLINDAMYCIN 150 MG CAP PO ONE (05:00)
[2020-12-26] MEDS ORDERED: KETOROLAC 60 MG VIAL (30MG/ML) IM ONE (05:00)
[2020-12-26] MEDS ORDERED: ACETAMINOPHEN 500 MG TABLET PO ONE (05:00)
[2020-12-26] MEDS ORDERED: LIDOCAINE HCL 2% VISCOUS 15 ML UDCUP PO ONE (05:00)
== END 2020-12-26 05:24 | disposition home or self-care (01) ==
LOC: EDH 04:06
DX: K03.81 Cracked tooth (principal); K04.7 Periapical abscess without sinus; K02.9 Dental caries, unspecified; I10 Essential (primary) hypertension; E11.9 Type 2 diabetes mellitus without complications; Z79.1 Long term (current) use of non-steroidal anti-inflammatories (NSAID); Z79.84 Long term (current) use of oral hypoglycemic drugs; Z79.82 Long term (current) use of aspirin; Z79.899 Other long term (current) drug therapy
CPT/HCPCS: 96372 ×2; 99283; 99284; J0696; J1885; J3490

== ENCOUNTER 2020-12-26 18:18 | Emergency (ER) | payer MEDICAID ==
[~2020-12-26] VITALS: Ht 162.6 cm; Wt 73.0 kg
[~2020-12-26 18:18] MED LIST changes: +CLIN300C10 PO; +MELO7.5T12 PO; +XYLOCAINE VISCOUS MM
[2020-12-26 19:00] VITALS: BP 148/78
[2020-12-26] MEDS ORDERED: CEFTRIAXONE 1G VIAL IM ONE (19:00)
[2020-12-26] MEDS ORDERED: ACETAMINOPHEN WITH CODEINE 1 TAB TAB PO ONE (19:00)
[2020-12-26] MEDS ORDERED: CEFTRIAXONE 1G VIAL ONE (19:21)
[2020-12-26] MEDS ORDERED: LIDOCAINE HCL-MPF 1% 2ML VIAL ONE (19:21)
== END 2020-12-26 19:40 | disposition home or self-care (01) ==
LOC: EDH 18:18
DX: S02.5XXA Fracture of tooth (traumatic), initial encounter for closed fracture (principal); K02.9 Dental caries, unspecified; K04.7 Periapical abscess without sinus; I10 Essential (primary) hypertension; E11.9 Type 2 diabetes mellitus without complications; E78.00 Pure hypercholesterolemia, unspecified; Z79.1 Long term (current) use of non-steroidal anti-inflammatories (NSAID); Z79.82 Long term (current) use of aspirin; Z79.84 Long term (current) use of oral hypoglycemic drugs; Z79.899 Other long term (current) drug therapy; X58.XXXA Exposure to other specified factors, initial encounter; Y93.89 Activity, other specified; Y92.89 Other specified places as the place of occurrence of the external cause; Y99.8 Other external cause status
CPT/HCPCS: 96372; 99283; J0696; J3490

== ENCOUNTER 2022-11-30 14:57 | Emergency (ER) | payer MEDICAID ==
[~2022-11-30] VITALS: Ht 167.6 cm; Wt 72.6 kg
[~2022-11-30 14:57] MED LIST changes: +CLIN-141 PO; -CLIN300C10 PO
[2022-11-30 15:24] LABS: BASOPHILS % (AUTO) 0.4 % (0.0-5.0); EOSINOPHILS % (AUTO) 0.7 % (0.0-8.0); HEMATOCRIT 46.8 % (42-54); MEAN CORPUSCULAR HEMOGLOBIN 29.7 pg (27.0-33.0); MEAN CORPUSCULAR HGB CONC 34.2 g/dL (32.0-36.0); MEAN CORPUSCULAR VOLUME 86.8 fL (79-99); MONOCYTES % (AUTO) 6.6 % (3.0-13.0); PLATELET COUNT (AUTO) 221 K/uL (130-400); RED BLOOD CELL COUNT(AUTO) 5.39 MIL/uL (4.50-6.20); RED CELL DISTRIBUTION WIDTH 13.4 % (11.0-15.5); WHITE BLOOD COUNT (AUTO) 11.4 K/uL (4.8-10.8)
[2022-11-30 15:27] LABS: APPEARANCE,URINE CLEAR (CLEAR); BILIRUBIN,URINE NEGATIVE (NEGATIVE); COLOR,URINE YELLOW (YELLOW); GLUCOSE, URINE (UA) 500 mg/dL (NEGATIVE); KETONES,URINE 10 mg/dL (NEGATIVE); LEUKOCYTE ESTERASE ,URINE NEGATIVE Leu/uL (NEGATIVE); NITRATE,URINE NEGATIVE (NEGATIVE); OCCULT BLOOD,URINE NEGATIVE (NEGATIVE); PH,URINE 5.5 (5.0-8.0); PROTEIN,URINE 30 mg/dL (NEGATIVE)
[2022-11-30 15:29] LABS: BACTERIA,URINE RARE /HPF (None Seen); MUCUS,URINE FEW LPF (None Seen); RBC,URINE 0-1 /HPF (0-1); SQUAMOUS EPITHELIAL CELL,UR RARE /HPF (0-2)
[2022-11-30 15:33] LABS: CARBON DIOXIDE 22 mmol/L (21-32); CHLORIDE 104 mmol/L (101-111); CREATININE 0.9 mg/dL (0.5-1.5); GLOMERULAR FILTR. RATE CALC 98 mL/min (>90); GLUCOSE,RANDOM 141 mg/dL (70-105); POTASSIUM 3.7 mmol/L (3.5-5.1); SODIUM SERUM 138 mmol/L (136-145); UREA NITROGEN, BLOOD 17 mg/dL (7-18)
[2022-11-30 15:35] LABS: AMPHET/METH SCREEN,URINE NEGATIVE (NEGATIVE); BARBITURATE SCREEN, URINE NEGATIVE (NEGATIVE); BENZODIAZEPINES SCREEN,URINE NEGATIVE (NEGATIVE); CANNABINOID SCREEN,URINE NEGATIVE (NEGATIVE); COCAINE SCREEN,URINE POSITIVE (NEGATIVE); OPIATE SCREEN,URINE NEGATIVE (NEGATIVE); PHENCYCLIDINE SCREEN,URINE NEGATIVE (NEGATIVE)
[2022-11-30 15:39] LABS: ALANINE AMINOTRANSFERASE 37 U/L (12-78); ALBUMIN 3.8 g/dL (3.5-5.0); ASPARTATE AMINOTRANSFERASE 28 U/L (10-37); TOTAL PROTEIN, SERUM 7.5 g/dL (6.0-8.3)
[2022-11-30 15:45] LABS: ACETAMINOPHEN < 1 mcg/mL (10-29); SALICYLATE < 2.8 mg/dL (2.8-20.0)
[2022-11-30 20:01] VITALS: BP 146/75
== END 2022-11-30 21:15 ==
LOC: EDH 14:57
DX: F32.A Depression, unspecified (principal); R45.851 Suicidal ideations; F41.9 Anxiety disorder, unspecified; E11.9 Type 2 diabetes mellitus without complications; I10 Essential (primary) hypertension; Z79.1 Long term (current) use of non-steroidal anti-inflammatories (NSAID); Z79.82 Long term (current) use of aspirin; Z79.84 Long term (current) use of oral hypoglycemic drugs; Z79.899 Other long term (current) drug therapy
CPT/HCPCS: 99283; 80053; 80305; 85025; 36415; 81001; G0481